=== PATIENT | male | born 1935 | race Caucasian/White ===

== ENCOUNTER → 2016-06-05 | Outpatient (REF) ==
[2016-06-05 17:31] LABS: THYROID STIMULATING HORMONE 0.935 uIU/mL (0.465-4.680)
[2016-06-05 18:35] LABS: PSA-TOTAL 0.3 ng/mL (0-4)
== END ==
LOC: ZLAB.WCH 15:22
PROVIDERS: Internal Medicine
DX: Z01.89 Encounter for other specified special examinations (principal)
CPT/HCPCS: G0103

== ENCOUNTER 2017-04-26 16:24 | Inpatient (IN) | payer MEDICARE, BC ==
[~2017-04-26] VITALS: Ht 167.6 cm; Wt 94.1 kg
[2017-04-26] MEDS ORDERED: LOTREL 10 MG-201 CAP PO (17:52)
[2017-04-26] MEDS ORDERED: ASPIRIN 81M81 MG/TA2 PO (17:53)
[2017-04-26] MEDS ORDERED: PLAVIX 75MG TAB75 MG PO (17:53)
[2017-04-26] MEDS ORDERED: LIPITOR 40MG TA40 MG PO (17:53)
[2017-04-26] MEDS ORDERED: NATURAL IRON65 MG (17:54)
[2017-04-26] MEDS ORDERED: ZETIA 10MG TAB10 MG PO (17:54)
[2017-04-26] MEDS ORDERED: CALCIUM CARBON650 M2 (17:54)
[2017-04-26] MEDS ORDERED: NATURAL E400 IU PO (17:55)
[2017-04-26] MEDS ORDERED: VITAMIN C500 MG PO (17:55)
[2017-04-26] MEDS ORDERED: OCUVITE1 TA1 PO (17:56)
[2017-04-26] MEDS ORDERED: NATURAL POTASS595 MG (17:56)
[2017-04-26] MEDS ORDERED: MULTI VITAMINS1 TAB PO (17:56)
[2017-04-26 18:26] VITALS: BP 164/72; PULSE 112; TEMP 98.7
[2017-04-26 18:44] LABS: ARTERIAL BLD GAS O2 SATURATION 92.6 % (92-100); ARTERIAL BLD GAS TCO2 CT 20.3; ARTERIAL BLOOD GAS BASE EXCESS -4.2 (-2-2); ARTERIAL BLOOD GAS HCO3 19.4 meq/L (22-26); ARTERIAL BLOOD GAS PCO2 29.7 mmHg (35-45); ARTERIAL BLOOD GAS PO2 68.1 mmHg (80-100); ARTERIAL BLOOD GAS pH 7.43 (7.35-7.45)
[2017-04-26 18:56] LABS: HEMATOCRIT 23.7 % (42.0-52.0); HEMOGLOBIN 7.4 g/dl (13.5-18.0)
[2017-04-26 20:02] VITALS: BP 141/72; PULSE 113; TEMP 98.6
[2017-04-26 23:22] VITALS: BP 109/46; PULSE 112; TEMP 98.6
[2017-04-27] VITALS (12 sets, daily range): BP systolic 106–132; BP diastolic 40–90; PULSE 89–108; TEMP 98–99.4
[2017-04-27 07:11] LABS: GRAN # 3.4 (1.4-6.5); GRAN % 79.2 % (42.2-75.2); HEMATOCRIT 20.2 % (42.0-52.0); LYMPH # 0.6 (1.2-3.4); LYMPH % 12.7 % (20.0-51.0); MEAN CELL VOLUME 100 fl (80.0-100.0); MEAN CORPUSCULAR HEMOGLOBIN 31 pg (27.0-31.0); MEAN CORPUSCULAR HGB CONC 31 g/dl (33.0-37.0); MEAN PLATELET VOLUME 10.3 fl (7.4-10.4); MONO # 0.3 (0.1-0.6); MONO % 6.9 % (1.7-9.3); PLATELET COUNT 179 K/mm3 (130-400); RED BLOOD COUNT 2.03 M/mm3 (4.20-5.60); REDCELL DISTRIBUTION WIDTH-CV 16.3 % (11.5-14.5)
[2017-04-27 07:12] LABS: HEMOGLOBIN 6.2 g/dl (13.5-18.0)
[2017-04-27 07:21] LABS: ALANINE AMINOTRANSFERASE 36 U/L (21-72); ALBUMIN 2.9 gm/dL (3.5-5.0); ALKALINE PHOSPHATASE 74 U/L (50-136); ANION GAP 4 mmol/L (7-16); AST,SGOT 23 U/L (15-37); BILIRUBIN,TOTAL < 0.1 mg/dL (0.0-1.0); BLOOD UREA NITROGEN 44 mg/dL (9-20); CALCIUM 8.1 mg/dL (8.4-10.2); CARBON DIOXIDE 23 mmol/L (22-30); CHLORIDE 106 mmol/L (98-107); GLUCOSE 128 mg/dL (74-106); POTASSIUM 4.7 mmol/L (3.4-5.0); SODIUM 133 mmol/L (137-145); TOTAL PROTEIN 5.3 gm/dL (6.4-8.2)
[2017-04-27 08:43] LABS: IRON,SERUM 15 ug/dL (35-150)
[2017-04-27 08:52] LABS: TOTAL IRON BINDING CAPACITY 314 ug/dL (261-462)
[2017-04-27 09:19] LABS: FERRITIN 22 ng/mL (18-464)
[2017-04-27 17:22] LABS: FOLATE (FOLIC ACID) 14.3 ng/mL (7.0-31.4)
[2017-04-27 19:26] LABS: HEMOGLOBIN 7.3 g/dl (13.5-18.0)
[2017-04-28] VITALS (15 sets, daily range): BP systolic 111–156; BP diastolic 47–76; PULSE 84–115; TEMP 98.1–98.9
[2017-04-28 10:40] LABS: BASO % 0.3 % (0.0-2.0); EOS % 0.4 % (0-4.0); GRAN # 7.7 (1.4-6.5); GRAN % 78.4 % (42.2-75.2); HEMATOCRIT 27.1 % (42.0-52.0); HEMOGLOBIN 8.3 g/dl (13.5-18.0); LYMPH # 1.1 (1.2-3.4); LYMPH % 10.9 % (20.0-51.0); MEAN CELL VOLUME 96 fl (80.0-100.0); MEAN CORPUSCULAR HEMOGLOBIN 29 pg (27.0-31.0); MEAN CORPUSCULAR HGB CONC 31 g/dl (33.0-37.0); MEAN PLATELET VOLUME 9.8 fl (7.4-10.4); MONO # 0.9 (0.1-0.6); PLATELET COUNT 215 K/mm3 (130-400); RED BLOOD COUNT 2.82 M/mm3 (4.20-5.60); REDCELL DISTRIBUTION WIDTH-CV 17.9 % (11.5-14.5)
[2017-04-28 10:50] LABS: ALBUMIN 3.2 gm/dL (3.5-5.0); CALCIUM 8.5 mg/dL (8.4-10.2); CHOLESTEROL RISK RATIO 2.5; CREATININE, serum 2.14 mg/dL (0.66-1.25); POTASSIUM 4.4 mmol/L (3.4-5.0)
[2017-04-28 16:50] LABS: HEMATOCRIT 29.3 % (42.0-52.0); HEMOGLOBIN 9.4 g/dl (13.5-18.0)
[2017-04-29] VITALS (8 sets, daily range): BP systolic 136–162; BP diastolic 54–97; PULSE 101–120; TEMP 97.9–98.6
[2017-04-29 08:24] LABS: CALCIUM 8.4 mg/dL (8.4-10.2); CREATININE, serum 1.89 mg/dL (0.66-1.25)
[2017-04-29 08:29] LABS: GRAN # 6.5 (1.4-6.5); GRAN % 80.1 % (42.2-75.2); LYMPH # 0.9 (1.2-3.4); LYMPH % 10.6 % (20.0-51.0); MEAN CELL VOLUME 93 fl (80.0-100.0); MEAN CORPUSCULAR HGB CONC 32 g/dl (33.0-37.0); MEAN PLATELET VOLUME 10.3 fl (7.4-10.4); MONO # 0.7 (0.1-0.6); MONO % 8.3 % (1.7-9.3); PLATELET COUNT 178 K/mm3 (130-400); RED BLOOD COUNT 2.89 M/mm3 (4.20-5.60); REDCELL DISTRIBUTION WIDTH-CV 18.3 % (11.5-14.5)
[2017-04-29 08:31] LABS: HEMATOCRIT 26.8 % (42.0-52.0); HEMOGLOBIN 8.5 g/dl (13.5-18.0); MEAN CORPUSCULAR HEMOGLOBIN 29 pg (27.0-31.0)
[2017-04-29 08:33] LABS: POTASSIUM 4.5 mmol/L (3.4-5.0)
[2017-04-30 00:32] VITALS: BP 133/50; PULSE 107; TEMP 97.8
[2017-04-30 04:43] VITALS: BP 162/54; PULSE 106; TEMP 98.1
[2017-04-30 06:22] LABS: BASO % 0.1 % (0.0-2.0); GRAN # 6.9 (1.4-6.5); GRAN % 78.9 % (42.2-75.2); LYMPH % 11.2 % (20.0-51.0); MEAN CELL VOLUME 95 fl (80.0-100.0); MEAN CORPUSCULAR HGB CONC 31 g/dl (33.0-37.0); MEAN PLATELET VOLUME 9.9 fl (7.4-10.4); MONO # 0.8 (0.1-0.6); MONO % 8.8 % (1.7-9.3); PLATELET COUNT 189 K/mm3 (130-400); RED BLOOD COUNT 2.94 M/mm3 (4.20-5.60); REDCELL DISTRIBUTION WIDTH-CV 17.7 % (11.5-14.5)
[2017-04-30 06:25] LABS: HEMATOCRIT 27.8 % (42.0-52.0); HEMOGLOBIN 8.7 g/dl (13.5-18.0); MEAN CORPUSCULAR HEMOGLOBIN 30 pg (27.0-31.0)
[2017-04-30 06:42] LABS: CALCIUM 8.5 mg/dL (8.4-10.2); CREATININE, serum 1.82 mg/dL (0.66-1.25); MAGNESIUM 1.8 mg/dL (1.6-2.3)
[2017-04-30 08:09] VITALS: BP 159/67; PULSE 110; TEMP 98
[2017-04-30] MEDS ORDERED: FERROUS SU325 MG/TAB PO (08:57)
[2017-04-30] MEDS ORDERED: LEVAQUIN 750MG750 M1 PO (09:01)
[2017-04-30] MEDS ORDERED: LASIX 20MG TABL20 MG PO (09:10)
[2017-04-30] MEDS ORDERED: PROTONIX 40MG T40 MG PO (09:11)
[2017-04-30] MEDS ORDERED: PREDNISONE20 MG PO (09:12)
[2017-04-30] MEDS ORDERED: RT SPIRIVA18 MCG IH (09:24)
== END 2017-04-30 12:15 | disposition home or self-care (01) | DRG 189 ==
LOC: MEDICAL 16:24
PROVIDERS: Family Medicine; Internal Medicine Gastroenterology; Nurse Practitioner Family
PROC: 0W3P8ZZ Control Bleeding in Gastrointestinal Tract, Via Natural or Artificial Opening Endoscopic (ICD-10-PCS; 2017-04-29)
PROC: 0DB78ZX Excision of Stomach, Pylorus, Via Natural or Artificial Opening Endoscopic, Diagnostic (ICD-10-PCS; principal; 2017-04-29 17:30)
DX: J96.01 Acute respiratory failure with hypoxia (principal); K25.4 Chronic or unspecified gastric ulcer with hemorrhage; N17.9 Acute kidney failure, unspecified; J44.9 Chronic obstructive pulmonary disease, unspecified; I11.0 Hypertensive heart disease with heart failure; I50.9 Heart failure, unspecified; D50.9 Iron deficiency anemia, unspecified; Z87.891 Personal history of nicotine dependence; Z95.5 Presence of coronary angioplasty implant and graft
CPT/HCPCS: 99222-AI; 99232-AI; 99233-AI; 99239; J1940; J2704; J7030; J7512; P9016

== ENCOUNTER → 2017-06-03 | Outpatient (REF) ==
[~2017-06-03] MED LIST: ASPIRIN 81M81 MG/TA2 PO; CALCIUM CARBON650 M2; FERROUS SU325 MG/TAB PO; LASIX 20MG TABL20 MG PO; LEVAQUIN 750MG750 M1 PO; LIPITOR 40MG TA40 MG PO; LOTREL 10 MG-201 CAP PO; MULTI VITAMINS1 TAB PO; NATURAL E400 IU PO; NATURAL IRON65 MG; NATURAL POTASS595 MG; OCUVITE1 TA1 PO; PLAVIX 75MG TAB75 MG PO; PREDNISONE20 MG PO; PROTONIX 40MG T40 MG PO; RT SPIRIVA18 MCG IH; VITAMIN C500 MG PO; ZETIA 10MG TAB10 MG PO
== END ==
LOC: ZLAB.WCH 16:04
DX: Z01.89 Encounter for other specified special examinations (principal)
CPT/HCPCS: G0103

== ENCOUNTER → 2020-01-28 | Outpatient (REF) | LOC: ZLAB.WCH 09:40 | DX: Z01.89 Encounter for other specified special examinations (principal) ==

== ENCOUNTER → 2020-03-18 | Outpatient (REF) | LOC: ZLAB.WCH 09:20 | DX: Z01.89 Encounter for other specified special examinations (principal) ==